=== PATIENT | female | born 1970 | race Caucasian/White ===

== ENCOUNTER → 2022-10-11 | Outpatient (CLI) | payer OTHER, SELFPAY ==
[2022-10-11 09:59] LABS: Absolute Lymphocyte Count 2.22 X10^3/uL (0.83-4.51); Absolute Neutrophil Count 2.6 X10^3/uL (2.0-7.7); Basophil# 0.04 X10^3/uL; Basophil% 0.7 % (0-1); Eosinophil# 0.09 X10^3/uL; Eosinophils% 1.7 % (0-5); Hematocrit 42.3 % (37-47); Hemoglobin 13.8 g/dL (12.0-15.0); Lymphocyte # 2.22 X10^3/ul (0.83-4.51); Lymphocyte % 41.5 % (19-41); Mean Corp Hgb Conc 32.6 g/dL (32-36); Mean Corpuscular Hgb 31.1 pg (27.0-32.0); Mean Corpuscular Volume 95.3 fL (81-99); Mean Platelet Vol. 9.9 fl (6.2-12.0); Monocyte# 0.38 X10^3/uL; Monocyte% 7.1 % (0-10); NRBC Flagged by Analyzer 0 % (0-5); Neutrophil # 2.61 X10^3/uL (2.7-7.7); Neutrophil % 48.8 % (47-70); Platelet Count 302 K/mm3 (150-450); RBC Distribution Width CV 13.2 % (11.6-14.6); RBC Distribution Width SD 45.8 fl (35.1-43.9); Red Blood Count 4.44 M/mm3 (4.2-5.4); White Blood Count 5.4 K/mm3 (4.4-11.0)
[2022-10-11 10:32] LABS: T4 Free Direct 0.84 ng/dL (0.76-1.46); Thyroid Stim Hormone (TSH) 1.63 uIU/mL (0.358-3.74)
== END | disposition home or self-care (01) ==
LOC: LAB 09:32
PROVIDERS: PCP Family Medicine; Referring Provider Advanced Practice Midwife; Visit Provider Advanced Practice Midwife
DX: N93.9 Abnormal uterine and vaginal bleeding, unspecified (principal); Z13.29 Encounter for screening for other suspected endocrine disorder
CPT/HCPCS: 36415; 84439; 84443; 85025

== ENCOUNTER → 2022-10-15 | Outpatient (CLI) | payer OTHER, SELFPAY ==
--- NOTE | 2022-10-15 14:05 | US_ITS ---
INDICATION: AUB EXAMINATION: Ultrasound US Transvaginal Non-OB COMPARISON: None. FINDINGS: 68 grayscale ultrasound images of the pelvis obtained transvaginally. In addition dedicated ovarian color Doppler and Doppler waveform interrogation was performed. UTERUS: Uterus measures : 9.8 x 6.6 x 4.9 cm. Heterogeneous endometrium with thickness of 0.8 cm. Trace endometrial fluid. Myometrium is unremarkable. ADNEXA: Right ovary is not visualized. Flow is documented to left ovary by color Doppler as well as Doppler waveform. Multiple anechoic left ovarian follicles and cysts measuring up to 2.2 cm. No significant free fluid. US/Transvaginal Non- IMPRESSION: Heterogeneous endometrium with thickness of only 0.8 cm. Trace endometrial fluid present may account for heterogeneity at the fundus. Right ovary is not visualized. Multiple anechoic left ovarian follicles and cysts measuring up to 2.2 cm. Electronically Signed: Jorden Mcallister MD at 21:22 EDT ,
== END | disposition home or self-care (01) ==
LOC: US 14:05
PROVIDERS: PCP Family Medicine; Referring Provider Advanced Practice Midwife; Visit Provider Advanced Practice Midwife
DX: N93.9 Abnormal uterine and vaginal bleeding, unspecified (principal)
CPT/HCPCS: 76830

== ENCOUNTER → 2022-11-05 | Outpatient (CLI) | payer OTHER, SELFPAY ==
--- NOTE | 2022-11-05 14:00 | EMB_PTH ---
PATIENT: LYNETTE BAILEY LOC: [facility] U#:[id number] AGE/SX: 52/F ROOM: RE11/05/[address]: Allie Figueredo CNM : 1970 BED: DIS: 11/05/2022 SPEC #: [id number] RECD: 11/05/22 15:35 STATUS: VAHID REFran #: [id number] SUJEY: 11/05/22 14:[address]: Allie Figueredo DEPT: SURGICAL PATHOLOGY RECD BY: Tiburcio Hutton ENTERED: 11/06/22 06:55 SP TYPE: ENDOM BX/C CYNDI DR: Dr. Grover Guo MD Tissues: Endometrium, NOS Procedures: Surgery Specimen Level IV HEADER OPERATION: Endometrial biopsy PRE-OP DIAGNOSIS: Enlarged uterus, abnormal bleeding TISSUE SUBMITTED: Endometrial tissue MICROSCOPIC DIAGNOSIS Endometrium, biopsy: Secretory endometrium with changes suggestive of exogenous hormonal effect. AM:sushant 11/07/2022 MICROSCOPIC DESCRIPTION Slides are reviewed. GROSS DESCRIPTION Received is one container labeled with the patient's name and not further designated. The specimen consists of multiple irregular fragments of light bennett mucoid material that in aggregate measure 1.5 x 0.5 x 0.1 cm. The specimen is totally submitted in one cassette. / AM:sushant 11/06/2022 TC:5 CPT: 18785
== END | disposition home or self-care (01) ==
LOC: LABSPEC 16:02
PROVIDERS: PCP Family Medicine; Referring Provider Advanced Practice Midwife; Visit Provider Advanced Practice Midwife
DX: N93.9 Abnormal uterine and vaginal bleeding, unspecified (principal); N85.2 Hypertrophy of uterus
CPT/HCPCS: 88305

== ENCOUNTER 2023-02-25 08:42 | Day surgery (SDC) | payer OTHER, SELFPAY ==
--- NOTE | 2023-02-18 13:03 | EKG12_ITS ---
Test Reason : PREOP Blood Pressure : / mmHG Vent. Rate : 066 BPM Atrial Rate : 066 BPM P-R Int : 162 ms QRS Dur : 078 ms QT Int : 368 ms P-R-T Axes : 080 064 054 degrees QTc Int : 385 ms Normal sinus rhythm Septal infarct , age undetermined Abnormal ECG Confirmed by BRENDA ARO, SHRAVAN ([id number]), development editor DASIA TRENT ([id number]) on 02/19/2023 11:04:14 AM Referred By: AYDE Confirmed By:SHRAVAN GUTIERREZ MD
[2023-02-18 13:28] LABS: Hemoglobin 14.6 g/dL (12.0-15.0); Mean Corp Hgb Conc 32.4 g/dL (32-36); Mean Corpuscular Hgb 30.5 pg (27.0-32.0); Mean Corpuscular Volume 94.1 fL (81-99); Mean Platelet Vol. 9.7 fl (6.2-12.0); Platelet Count 333 K/mm3 (150-450); RBC Distribution Width CV 12.9 % (11.6-14.6); RBC Distribution Width SD 44.9 fl (35.1-43.9); Red Blood Count 4.78 M/mm3 (4.2-5.4)
[2023-02-18 13:38] LABS: Internal QC Validated? YES +Cl - CLEAR BKGD; Pregnancy, Urine Negative Negative; Record Kit Lot#,Urine Preg 667200
[2023-02-18 13:48] LABS: Magnesium 2.3 mg/dL (1.6-2.6)
[2023-02-25] VITALS (13 sets, daily range): BP systolic 71–99; BP diastolic 42–63; PULSE 52–79; RESP 11–18; TEMP 36.3–37.3; O2SAT 94–100; BMI 24.7
[2023-02-25 09:09] LABS: Internal QC Validated? YES +Cl - CLEAR BKGD; Pregnancy, Urine Negative Negative
[2023-02-25] MEDS: Lactated Ringers 1,000 ML 40 ML IV ×3 (09:20→16:04)
[2023-02-25] MEDS: Magnesium 1 GM over 15 mins IV (09:21)
[2023-02-25] MEDS: Scopolamine 1mg/72hr Patch 1 PATCH TD (09:21)
[2023-02-25] MEDS: Enoxaparin 40 MG/0.4 ML Syringe SC (09:23)
[2023-02-25] MEDS: dexAMETHasone 4 MG/ML Vial 8 MG IV (09:24)
[2023-02-25] MEDS: Phenazopyridine 95 MG Tablet 190 MG PO (09:25)
[2023-02-25] MEDS: Celecoxib 200 MG Capsule 400 MG PO (09:26)
[2023-02-25] MEDS: Acetaminophen 500 MG Tablet 1000 MG PO (09:26)
[2023-02-25] MEDS: Gabapentin 600 MG Tablet PO (09:27)
[2023-02-25 10:24] LABS: Bedside Glucose 102 mg/dL (74-106)
--- NOTE | 2023-02-25 10:27 | PCM.HP.BLA ---
History and Physical Vital Signs 12/04/2311:08 02/18/2315:09 02/18/2315:10 Height 5 ft 6 in 5 ft 6 in 5 ft 6 in Weight: 156 lb BMI 25.2 BP 114/74 Intake Visit Reasons: TVHBS Portfolio Accountant Required: No Is patient in pain?: No Allergies No Known Allergies Allergy (Verified 02/18/23 15:10) Medications norethindrone acetate 5 mg tablet 5 mg PO DAILY #45 tabs 12/03/22 [Rx Confirmed 02/18/23] Is last menstrual period known: No Post menopausal: No Patient : No : No PFSH Medical History (Updated 02/11/23 @ 09:26 by Mignon Mcmahon) Back pain Blackout History of diverticulitis History of echocardiogram History of endometrial biopsy (~10/2022) Non-smoker Wears contact lenses Wears glasses Surgical History (Updated 02/11/23 @ 09:26 by Mignon Mcmahon) History of endometrial ablation Hx of colonoscopy Social History household members: spouse and children housing: house number of children: 2 current occupational status: employed current occupation: PT sales and marketing assistant @ [employer] sexually active: Yes Smoking Status: Never smoker alcohol intake: current caffeine: Yes Type: coffee additional social history: - Ean HPI TVHBS Details: LYNETTE BAILEY is a 52 year old who presents for preop visit 9cm uterus preivous ablation persistent AUB nl EMB. Female Reproductive History Menopausal Symptoms: No night sweats History 2 Elective abortions Hx Para 2 Spontaneous abortions Hx # Term Pregnancies Ectopic pregnancies Hx # Pregnancies Multiple births # of living children ROS Const Constitutional: Denies fatigue, night sweats, weight gain or weight loss ENT ENT: Reports system reviewed and no additional complaints, except as documented Cardio Card: Denies chest pain Resp Resp: Reports cough; Denies dyspnea GI GI: Reports as per HPI; Denies abdominal pain, constipation, nausea or vomiting : Denies nipple discharge, urinary frequency, urinary incontinence, urinary hesitancy, urinary urgency, vaginal discharge, vaginal dryness, vaginal odor or vaginal pruritus Musc Musc: Denies arthralgias, back pain or muscle weakness Skin Skin/Breast: Denies alopecia, change in hair, dry skin, breast mass, breast pain, breast skin changes or nipple discharge Neuro Neuro: Reports system reviewed and no additional complaints, except as documented Psych Psych: Reports system reviewed and no additional complaints, except as documented Endo Endo: Denies cold intolerance, excessive sweating, heat intolerance or polydipsia Rafa/Lymph Hematologic/Lymphatic: Denies easy bleeding, Denies easy bruising and Denies lymphadenopathy Exam Const General: cooperative, healthy appearing, comfortable and no acute distress Orientation: alert HENMT Head: normal to inspection and normocephalic Ears: hearing grossly normal bilaterally and external ears normal Nose: external nose normal and nares normal Face and sinus: normal facial exam Neck Neck: normal visual inspection and no lymphadenopathy Thyroid: thyroid normal Chest Chest palpation & inspection: normal inspection of the chest Resp Effort & Inspection: normal respiratory effort Auscultation: not clear to auscultation bilaterally and rhonchi Cardio Rate: regular rate Rhythm: regular rhythm Heart Sounds: S1 normal and S2 normal GI Inspection: normal to inspection and non-distended Palpation: soft and no hepatosplenomegaly Musc Other: gross motor intact no deficits, full bilateral strength Skin General: no rashes or lesions noted Neuro General: patient alert, patient awake, moves all extremities and no focal motor deficits Motor: muscle tone normal throughout Extrem General: normal to inspection and no pedal edema Psych Appearance: grossly normal Mental Status: mental status grossly normal Affect: normal affect Speech and Movement: speech and movement normal Coding Level of Care Code No Charge Diagnoses Abnormal uterine bleeding N93.9 Assessment and Plan Assessment and Plan (1) Abnormal uterine bleeding: Status: Acute Comment: failed ablation. nl emb. 9 cm uterus. plan TVHBS Plan recommend urgent care evaluation for cough and abnormal breath sounds After discussing the patient's diagnosis and treatment plan options, patient wishes to proceed with surgical management. I have discussed with the patient the risks, benefits, and alternatives of the procedure which include but are not limited to risks of anesthesia, bleeding, infection, possible damage to bowel, bladder, or surrounding vasculature which could lead to additional surgery to evaluate any complications. Patient agrees to procedure and wishes to proceed. ACOG/uptodate references given for additional information regarding procedure. UPDATE- I have seen the patient and performed any clinically relevant updates to the history and physical exam. Annemaire Farias MD
[2023-02-25] MEDS: Cefazolin 2 GM in 0.9% Normal Saline (100mL Bag) 100 ML IV (10:40)
--- NOTE | 2023-02-25 10:45 | HYST_PTH ---
PATIENT: LYNETTE BAILEY LOC: [facility] [place] U#:[id number] AGE/SX: 52/F ROOM: RE02/25/[address]: Dr. Annemarie Farias MD : 1970 BED: DIS: 02/25/2023 SPEC #: [id number] RECD: 02/25/23 13:09 STATUS: VAHID REFran #: [id number] SUJEY: 02/25/23 10:[address]: Annemarie Farias DEPT: SURGICAL PATHOLOGY RECD BY: Maryan Salmon ENTERED: 02/25/23 13:31 SP TYPE: HYSTERECT OTHR DR: Dr. Grover Guo MD Tissues: Uterus, NOS Procedures: Surgery Specimen Level V HEADER OPERATION: ERAS, total vaginal hysterectomy, bilateral salpingectomy PRE-OP DIAGNOSIS: Abnormal uterine bleeding TISSUE SUBMITTED: Uterus, cervix, bilateral fallopian tubes MICROSCOPIC DIAGNOSIS Uterus, cervix, bilateral fallopian tubes, total vaginal hysterectomy and bilateral salpingectomy: Cervix - mild chronic inflammation. Endometrium - proliferative endometrium. Myometrium - a subserosal leiomyoma (1.3 cm in greatest dimension). - A minute intramural leiomyoma (0.2 cm in greatest dimension). Bilateral fallopian tubes - no pathologic diagnosis. SJ:sushant 02/26/2023 MICROSCOPIC DESCRIPTION Slides are reviewed. GROSS DESCRIPTION Received in fixative is one container labeled with the patient's name and designated uterus. The specimen consists of a uterus with attached cervix measuring 9.0 x 5.0 x 4.2 cm and weighing 91 gm. The ectocervix is unremarkable. The cervical os is oval in contour. Present free in the container are two detached fallopian tubes including fimbrial ends with average lengths of 2.5 cm and average diameters of 0.7 cm. The endocervical canal measures 3.2 cm in length and is grossly unremarkable. The triangular endometrial cavity measures 3.0 x 3.0 cm. The velvety, light bennett endometrium measures up to 0.1 cm in thickness. The myometrium measures 2.5 cm in average thickness and contains a firm, subserosal, white rubbery nodule measuring 1.3 cm and grossly resembling a leiomyoma. Senior Information Security Consultant sections are submitted in nine cassettes as follows: 1 - anterior cervix, 2 - posterior cervix, 3 & 4 - anterior uterine wall, 5 & 6 - posterior uterine wall, 7 - myometrial mass, bisected, 8 - one fallopian tube, 9 - the other fallopian tube. / AM:sushant 02/25/2023 TC:1 CPT: 81716
[2023-02-25] MEDS: Vasopressin 20 UNITS/ML Vial (11:00)
[2023-02-25] MEDS: Ondansetron 4 MG/2 ML Vial IV (12:00)
--- NOTE | 2023-02-25 12:14 | OP.PCM_ITS ---
Problems Associated Problem List Diagnoses (1) Abnormal uterine bleeding: Report of Operation Date of Procedure: 02/25/23 Pre-Operative Diagnosis: see A/P Post-Operative Diagnosis: same Surgery/Procedure Performed:: TVH BS Description of Surgical Findings:: enlarged uterus boggy with congestion Surgeon: Annemarie Farias retail financial analyst: Grover Vides Type of Anesthesia: General Specimen's removed: uterus, tubes Drains: jean baptiste Estimated Blood Loss (mL): 200 Fluids Replaced: crystalloid Description of Procedure: Patient was taken to the operating room and was placed under general anesthesia was prepped and draped in normal sterile fashion in the dorsal lithotomy position. Preoperative antibiotics and SCDs and Jean Baptiste catheter was placed inside the bladder. Weighted speculum was placed in the vagina and the anterior and posterior lip of the cervix was grasped with 2 Melissa clamps and circumferentially injected with dilute vasopressin. A circumferential incision was made with a scalpel and the posterior cul-de-sac was entered into sharply and a longneck speculum was placed. The anterior cul-de-sac was also dissected down and entered into sharply and the uterosacral ligaments were clamped cut and suture ligated bilaterally followed by the cardinal ligaments which were Clamped cut and suture ligated bilaterally with 0 Monocryl. The uterus serially descend ed and progressive bites were taken bilaterally up to the level of the utero- ovarian ligament bilaterally which was clamped transected and double ligated with 0 Monocryl suture and 0 Vicryl free tie. Bilateral fallopian tubes and ovaries were well visualized and noted be within normal limits and the bilateral fallopian tubes were transected across the base with a Allie clamp and removed and sutured with 0 Vicryl suture. Excellent hemostasis was noted. Posterior peritoneum was reapproximated with 0 Vicryl. The vagina was closed with [id number] 0 Vicryl pop offs including the posterior and anterior peritoneum in the reapproximation. Excellent hemostasis was noted. All instruments removed from the vagina clear urine was noted at the end of the procedure and patient was awoken and taken recovery in stable condition. Grafts/Implants Used: none Procedure Start Time: 10:55 Procedure Stop Time: 12:12 Complications none Admit VTE Documentation VTE Present on Admission: No VTE Mechan Device Prophylaxis: SCD's VTE Pharm Prophylaxis ordered?: Yes Multi Select Codes Urinary/Genital Urinary/Genital CPT Codes: 90478 TVH+BS/O <250gr uterus
--- NOTE | 2023-02-25 12:16 | DCINST_ITS ---
Discharge Instructions Diet Discharge Diet: No restrictions Activity Discharge Activity: Return to Normal Activity, May Not Drive (while taking narcotic pain medications.) and May Shower May resume sexual activity in: 6-8 weeks Dressing / Incision Call your doctor if your incision/area has: Continuous Slow Oozing, Sudden Increased Bleeding, Increased Pain/ Swelling, Increased Redness and Foul Smelling Discharge Call your doctor if you observe: Fever of 101 or Higher, Inability to urinate, Inability to have a bowel movement and Using more than 1 pad per hour Follow Up Care Please Follow Up With: Annemarie Farias MD Test Results: Test results from this visit will be discussed in further detail at your follow- up appointment, if applicable. Discharge Plan Admission Attending Provider: Annemarie Farias Primary Care Provider: Grover Guo Discharge Orders/Prescriptions Prescriptions: New oxycodone-acetaminophen [Percocet] 5-325 mg tablet 1 tab PO Q6H PRN (Reason: pain) 7 Days Qty: 10 0RF naproxen [naproxen] 500 mg tablet 500 mg PO BID PRN PRN (Reason: Pain) Qty: 30 1RF Discontinued norethindrone acetate 5 mg tablet 5 mg PO DAILY Qty: 45 1RF Rx Instructions: Three times daily until there is no bleeding for 24 hours. Then take twice daily to finish bottle Referrals / Follow Up: Grover Guo MD [Primary Care Provider] - Disposition Disposition (needs filled in before D/C Order can be placed): Home, Self Care
[2023-02-25] MEDS: Ketorolac 30 MG/ML Syringe IV (12:45)
[2023-02-25] MEDS: oxyCODONE 5 MG Tablet PO (16:04)
[2023-02-25 16:33] LABS: Hematocrit 37.8 % (37-47); Hemoglobin 12.6 g/dL (12.0-15.0); Mean Corp Hgb Conc 33.3 g/dL (32-36); Mean Corpuscular Hgb 31.3 pg (27.0-32.0); Mean Platelet Vol. 10.1 fl (6.2-12.0); Platelet Count 275 K/mm3 (150-450); RBC Distribution Width CV 12.7 % (11.6-14.6); RBC Distribution Width SD 44.2 fl (35.1-43.9); Red Blood Count 4.02 M/mm3 (4.2-5.4); White Blood Count 8.4 K/mm3 (4.4-11.0)
[2023-02-25] MEDS: Lactated Ringers 1,000 ML 999 ML IV (18:44)
== END 2023-02-25 20:45 | disposition home or self-care (01) ==
LOC: SDC 08:43 → AC 08:45
PROVIDERS: Anesthesiology; PCP Family Medicine; Referring Provider Obstetrics & Gynecology; Visit Provider Obstetrics & Gynecology
PROC: (CPT 58260; principal; 2023-02-25 10:25)
DX: D25.2 Subserosal leiomyoma of uterus (principal); D25.1 Intramural leiomyoma of uterus; N72 Inflammatory disease of cervix uteri; N93.9 Abnormal uterine and vaginal bleeding, unspecified
CPT/HCPCS: 58262; 00944; 36415; 81025; 82962; 83735; 85027; 86850; 86900; 86901; 88307; 93005; J7120; J2405; J3475